=== PATIENT | female | born 1990 | race Caucasian/White ===

== ENCOUNTER 2017-10-29 16:12 | Emergency (ER) | payer OTHER ==
[~2017-10-29] VITALS: Ht 165.1 cm; Wt 108.9 kg
[~2017-10-29 16:12] MED LIST: ALBU90OI INH; AMIT25; AMOX500 PO; CODE30 PO; CODGUAEL PO; DOXY100 PO; DULO30 PO; DULO60 PO; FAMO20 PO; FLUO20 PO; FLUT.05NI; HYDACE5 PO; IBUP600 PO; IBUP800 PO; METF500 PO; NAPR500 PO; ONDA4 PO; OXYACE5T PO; PROM25 PO; Percocet 5-3251 EACH PO; Protonix40 MG PO; RANI150 PO; RXHYD5325 PO; RXOXYACE PO; SUCR1 PO; Ultram50 MG PO; Zofran Odt4 MG SL
[2017-10-29] MEDS ORDERED: Ultram50 MG PO (18:12)
[2017-10-29] MEDS ORDERED: Naprosyn500 MG PO (18:12)
== END 2017-10-29 18:15 | disposition home or self-care (01) ==
LOC: ER 16:12
DX: S93.402A Sprain of unspecified ligament of left ankle, initial encounter (principal); F32.9 Major depressive disorder, single episode, unspecified; Z79.899 Other long term (current) drug therapy; Z98.890 Other specified postprocedural states; Z87.891 Personal history of nicotine dependence; W17.81XA Fall down embankment (hill), initial encounter
CPT/HCPCS: 29515; 73610; 99283

== ENCOUNTER → 2018-10-15 | Outpatient (CLI) | payer OTHER ==
[~2018-10-15] MED LIST changes: +Naprosyn500 MG PO
[2018-10-15 13:53] LABS: Bilirubin, Urine Neg (Neg); Blood, Urine Neg (Neg); Glucose Qualitative, Urine Neg (Neg); Ketones, Urine Neg (Neg); Leukocyte Esterase, Urine 2+ (Neg); Nitrite, Urine Neg (Neg); Protein, Urine Neg (Neg); Specific Gravity, Urine 1.015 (1.003-1.022); Urobilinogen, Urine NORM (Normal); pH, Urine 6.5 (5.0-8.0)
[2018-10-15 14:19] LABS: Appearance, Urine Hazy (Clear); Color, Urine Yellow (P-Yellow)
[2018-10-15 14:20] LABS: Squamous Epithelial Cells Many /hpf (Few)
[2018-10-15 14:21] LABS: Bacteria Few /hpf; Red Blood Cells, Urine 0-2 /hpf (0-2)
[2018-10-19 02:11] LABS: CHLAMYDIA TRACHOMATIS, NAA Negative (Negative); NEISSERIA GONORRHOEAE, NAA Negative (Negative)
== END | disposition home or self-care (01) ==
LOC: LAB 13:43 → LAB SHORT 13:43
PROVIDERS: Obstetrics & Gynecology
DX: Z36.89 Encounter for other specified antenatal screening (principal); O23.43 Unspecified infection of urinary tract in pregnancy, third trimester
CPT/HCPCS: 81001; 87086; 87491; 87591; G0123

== ENCOUNTER → 2019-04-06 | Outpatient (CLI) | payer OTHER | END | disposition home or self-care (01) | LOC: LAB 11:46 → LAB SHORT 11:46 | DX: Z34.80 Encounter for supervision of other normal pregnancy, unspecified trimester (principal) | CPT/HCPCS: 87081; 87653 ==

== ENCOUNTER 2019-04-22 11:10 | Inpatient (IN) | payer OTHER ==
[~2019-04-22] VITALS: Ht 165.1 cm; Wt 110.9 kg
[2019-04-22 14:12] LABS: BASOPHILS ABSOLUTE AUTO 0.04 K/mm3 (0.00-0.23); BASOPHILS PERCENT AUTO 0 % (0-2); EOSINOPHILS ABSOLUTE AUTO 0.06 K/mm3 (0.00-0.68); EOSINOPHILS PERCENT AUTO 0 % (0-6); Hematocrit 41.5 % (33.0-51.0); Hemoglobin 13.9 g/dL (11.5-16.0); IMMATURE GRAN ABSOLUTE AUTO 0.13 K/mm3 (0.00-0.10); IMMATURE GRAN PERCENT AUTO 1 % (0-1); LYMPHOCYTES PERCENT AUTO 13 % (21-46); MONOCYTES ABSOLUTE AUTO 0.97 K/mm3 (0.16-1.47); MONOCYTES PERCENT AUTO 5 % (4-13); Mean Corpuscular HGB 30.7 pg (26.0-34.0); Mean Corpuscular HGB Conc 33.5 g/dL (31.5-36.5); Mean Corpuscular Volume 92 fL (80-100); Mean Platelet Volume 11.8 fL (9.1-12.4); NEUTROPHILS ABSOLUTE AUTO 16.34 K/mm3 (1.96-9.15); NEUTROPHILS PERCENT AUTO 81 % (41-73); Platelet Count 326 K/mm3 (150-400); RDW Coefficient Variation 15.1 % (11.7-14.2); RDW Standard Deviation 50.9 fL (35.1-46.3); Red Blood Cell Count 4.53 M/mm3 (3.80-5.20); White Blood Cell Count 20.14 K/mm3 (4.00-11.30)
--- NOTE | 2019-04-23 01:23 | NUR ---
ASSUMED CARE AT 0115 FROM [facility]
[2019-04-23 06:06] LABS: Hematocrit 35.7 % (33.0-51.0); Hemoglobin 11.6 g/dL (11.5-16.0); Mean Corpuscular HGB 30.4 pg (26.0-34.0); Mean Corpuscular HGB Conc 32.5 g/dL (31.5-36.5); Mean Corpuscular Volume 94 fL (80-100); Mean Platelet Volume 10.4 fL (9.1-12.4); Platelet Count 202 K/mm3 (150-400); RDW Coefficient Variation 15.1 % (11.7-14.2); RDW Standard Deviation 51.3 fL (35.1-46.3); Red Blood Cell Count 3.82 M/mm3 (3.80-5.20); White Blood Cell Count 14.92 K/mm3 (4.00-11.30)
[2019-04-24] MEDS ORDERED: ACET325 PO (11:24)
[2019-04-24] MEDS ORDERED: IBUP800 PO (11:25)
[2019-04-24] MEDS ORDERED: DOCU100 PO (11:25)
[2019-04-24] MEDS ORDERED: TUCKS1 EACH (11:27)
[2019-04-24] MEDS ORDERED: HPA LANOLIN40 GM TOP (11:27)
[2019-04-24] MEDS ORDERED: Verotin-Gr Cap1 EACH PO (11:27)
--- NOTE | 2019-04-24 12:30 | NUR ---
No acute changes t/o shift. ID bands matched w/nb. Printed instructions reviewed and questions answered. Pt d/c'd home ambulatory to care of family.
== END 2019-04-24 12:55 | disposition home or self-care (01) | DRG 807 ==
LOC: OBS 11:10 → BC 11:10 → OBS 13:47 → BC 13:48
PROVIDERS: ADMIT Advanced Practice Midwife
PROC: 10E0XZZ Delivery of Products of Conception, External Approach (ICD-10-PCS; principal; 2019-04-22)
PROC: 0HQ9XZZ Repair Perineum Skin, External Approach (ICD-10-PCS; 2019-04-22)
PROC: 6A550ZT Pheresis of Cord Blood Stem Cells, Single (ICD-10-PCS; 2019-04-22)
DX: O70.0 First degree perineal laceration during delivery (principal); Z37.0 Single live birth; Z3A.38 38 weeks gestation of pregnancy; O32.6XX0 Maternal care for compound presentation, not applicable or unspecified; O90.89 Other complications of the puerperium, not elsewhere classified; R30.0 Dysuria
CPT/HCPCS: 36415; 59025; 85025; 85027; 99213; J0290; J1885; J2210; J2590; J7120

== ENCOUNTER → 2021-12-04 | Outpatient (CLI) | payer OTHER ==
[~2021-12-04] MED LIST changes: +ACET325 PO; +DOCU100 PO; +HPA LANOLIN40 GM TOP; +TUCKS1 EACH; +Verotin-Gr Cap1 EACH PO
[2021-12-04 15:15] LABS: Adenovirus F 40/41 Not Detected (NOT DETECT); Astrovirus Not Detected (NOT DETECT); Campylobacter Sp Not Detected (NOT DETECT); Cryptosporidium Not Detected (NOT DETECT); Cyclospora Cayetanensis Not Detected (NOT DETECT); E. Coli O157 Not Detected (NOT DETECT); Entamoeba Histolytica Not Detected (NOT DETECT); Enteroaggregative E. coli-EAEC Detected (NOT DETECT); Enteropathogenic E. coli-EPEC Not Detected (NOT DETECT); Enterotoxigenic E. coli-ETEC Not Detected (NOT DETECT); Giardia Lamblia Not Detected (NOT DETECT); Norovirus GI/GII Not Detected (NOT DETECT); Plesiomonas Shigelloides Not Detected (NOT DETECT); Rotavirus A Not Detected (NOT DETECT); Salmonella Sp Not Detected (NOT DETECT); Sapovirus Not Detected (NOT DETECT); Shiga Toxin-prod E. coli-STEC Not Detected (NOT DETECT); Shigella/Enteroin E. coli-EIEC Not Detected (NOT DETECT); Vibrio Cholerae Not Detected (NOT DETECT); Vibrio Sp Not Detected (NOT DETECT); Yersinia Enterocolitica Not Detected (NOT DETECT)
== END ==
LOC: LAB SHORT 12:43
PROVIDERS: Physician Assistant Medical
DX: A09 Infectious gastroenteritis and colitis, unspecified (principal)
CPT/HCPCS: 0097U

== ENCOUNTER 2023-01-15 08:07 | Day surgery (SDC) | payer OTHER ==
[~2023-01-15] VITALS: Ht 162.6 cm; Wt 117.9 kg
[~2023-01-15 08:07] MED LIST changes: +Aspir 8181 MG PO; +PRENATAL TABLE1 EAC2 PO
--- NOTE | 2023-01-15 09:57 | NUR ---
01/15/23 0957 Kike Mulligan ROPIVACAINE 0.5% 20 MLS MIXED & VERIFIED W/ EPI 0.10 ML (1MG/ML) TO MAKE ROPIVACAINE 0.5% 1:200,000 FOR INJECTION AT OPSITE BY DR DELGADO. 10 MLS INJECTED.
--- NOTE | 2023-01-15 10:54 | NUR ---
01/15/23 1054 CORINNE LEVY GIVEN FOR NAUSEA. WILL GIVE FENTANYL WHEN IN SDU.
--- NOTE | 2023-01-15 11:13 | NUR ---
01/15/23 1113 CORINNE LEVY BP 107/69, P 78, O2 100% ON RA. GIVING FENTANYL 25MCG FOR PAIN NOW. NAUSEA IS BETTER BUT NOT GONE. PAIN 9/10 PT STATES. PT EATING AND DRINKING W/O DIFFICULTY. IT APPEARS THAT HER ANXIETY HAS GOTTEN BETTER
== END 2023-01-15 11:37 | disposition home or self-care (01) ==
LOC: ORSCSDS 08:07
PROVIDERS: Obstetrics & Gynecology
PROC: 0UT74ZZ Resection of Bilateral Fallopian Tubes, Percutaneous Endoscopic Approach (ICD-10-PCS; principal; 2023-01-15 09:30)
DX: Z30.2 Encounter for sterilization (principal); N80.30 Endometriosis of pelvic peritoneum, unspecified; E66.01 Morbid (severe) obesity due to excess calories; Z68.41 Body mass index [BMI] 40.0-44.9, adult; Z87.891 Personal history of nicotine dependence; K21.9 Gastro-esophageal reflux disease without esophagitis; F43.10 Post-traumatic stress disorder, unspecified
CPT/HCPCS: 88302; A9270; J0171; J0690; J1100; J2250; J2405; J2704; J2795; J3010